=== PATIENT | male | born 1985 | race Caucasian/White ===

== ENCOUNTER 2021-05-26 10:56 | Emergency (ER) | payer BC ==
[~2021-05-26] VITALS: Ht 162.6 cm; Wt 108.9 kg
[2021-05-26 11:02] VITALS: BP 143/93
[2021-05-26] MEDS ORDERED: PRED20TA5 PO (12:11)
--- NOTE | 2021-05-26 12:31 | NUR ---
PT DISCHARGED IN ED LOBBY. NO NURSING INTERVENTIONS PROVIDED. PT SEEN AND DISCHARGED FROM THE LOBBY BY DR. HERNÁNDEZ.
== END 2021-05-26 12:31 | disposition home or self-care (01) ==
LOC: MED 10:56
DX: G51.0 Bell's palsy (principal); I10 Essential (primary) hypertension
CPT/HCPCS: 99283